=== PATIENT | female | born 1980 ===

== ENCOUNTER 2017-11-12 15:36 | Emergency (ER) | payer MEDICAID ==
[2017-11-12 15:41] VITALS: BP 114/69; PULSE 67; RESP 18; TEMP 98.3; O2SAT 100
--- NOTE | 2017-11-12 17:12 | ED PDOC ---
HPI: Chest Pain Time Seen by Provider: 11/12/17 16:07 Chief Complaint (Nursing): Chest Pain Chief Complaint (Provider): Chest Pain History Per: Patient History/Exam Limitations: no limitations Onset/Duration Of Symptoms: Days (x3) Current Symptoms Are (Timing): Still Present Additional Complaint(s): Isabella Barrios is a 37 year old female that presents to the ED with a chief complaint of constant left-sided mid-sternal chest pain that she has been experiencing for the past three days. Patient reports that her pain is worsened with movement, and that it radiates to the left side of her back. She denies any shortness of breath, palpitations, cough, fever, trauma, calf pain, leg swelling, recent travel, OCP use, or any medical problems. Past Medical History Reviewed: Historical Data, Nursing Documentation, Vital Signs Vital Signs: Last Vital Signs Temp 98.3 F 11/12/17 15:40 Pulse 67 11/12/17 15:40 Resp 18 11/12/17 15:40 BP 114/69 11/12/17 15:40 Pulse Ox 100 11/12/17 22:41 - Medical History PMH: Hypercholesterolemia (not on meds) - Family History Family History: States: Unknown Family Hx - Social History Current smoker - smoking cessation education provided: No Alcohol: None - Home Medications Home Medications: Ambulatory Orders Medication Instructions Recorded traMADol [Ultram] 50 mg PO DAILY PRN #5 tab 11/12/17 - Allergies Allergies/Adverse Reactions: Allergies Allergy/AdvReac Type Severity Reaction Status Date / Time acetaminophen [From Percocet] AdvReac DIZZINESS Verified 11/12/17 20:01 oxycodone [From Percocet] AdvReac DIZZINESS Verified 11/12/17 20:01 TERESITA Risk Score for UA/NSTEMI - TERESITA Risk Score Age > 64: NO 3 or more CAD Risk Factors: NO Known CAD (Stenosis greater than 50%): NO Aspirin use in past 7 days: NO Severe Angina: NO EKG ST changes greater than 0.5mm: NO Positive Cardiac Marker: NO TERESITA Score: 0 Risk %: 5% Review of Systems Constitutional: Negative for: Fever Cardiovascular: Positive for: Chest Pain (left-sided mif sternal). Negative for : Palpitations, Edema Respiratory: Negative for: Cough, Shortness of Breath Musculoskeletal: Negative for: Other (denies calf pain) Physical Exam - Reviewed Nursing Documentation Reviewed: Yes Vital Signs Reviewed: Yes - Physical Exam Appears: Positive for: Non-toxic, No Acute Distress Head Exam: Positive for: ATRAUMATIC, NORMOCEPHALIC Skin: Positive for: Normal Color, Warm Eye Exam: Positive for: Normal appearance, EOMI, PERRL Neck: Positive for: Normal, Supple Cardiovascular/Chest: Positive for: Regular Rate, Rhythm. Negative for: Chest Non Tender (TTP lower mid sternum), Murmur Respiratory: Positive for: Normal Breath Sounds. Negative for: Wheezing Gastrointestinal/Abdominal: Positive for: Normal Exam, Soft. Negative for: Tenderness Back: Positive for: Normal Inspection. Negative for: L CVA Tenderness, R CVA Tenderness Extremity: Positive for: Normal ROM. Negative for: Pedal Edema, Calf Tenderness , Swelling Neurologic/Psych: Positive for: Alert, Oriented. Negative for: Motor/Sensory Deficits - Laboratory Results Result Diagrams: 11/12/17 17:00 11/12/17 17:00 - ECG O2 Sat by Pulse Oximetry: 100 (RA) Pulse Ox Interpretation: Normal Medical Decision Making Medical Decision Making: Impression: Chest Pain Plan: * Chest X-Ray * CT Angio Chest * EKG * CMP * CBC * PTT * PT * D-Dimer * Troponin I * Urine * Reevaluation Chest X-Ray FINDINGS: LUNGS: No active pulmonary disease. PLEURA: No significant pleural effusion identified. No pneumothorax apparent. CARDIOVASCULAR: Aortic tortuosity versus aneurysmal dilatation. Cardiac silhouette within normal limits. OSSEOUS STRUCTURES: No significant abnormalities. VISUALIZED UPPER ABDOMEN: Normal. OTHER FINDINGS: None. IMPRESSION: No acute pulmonary disease. Aortic tortuosity versus aneurysmal dilatation. Correlation with cross- sectional imaging can be obtained for further evaluation. CT Angio Chest FINDINGS: Pulmonary arteries: No pulmonary embolism. Aorta: No aneurysm. No dissection. Lungs: No consolidation. Pleural space: No significant effusion. No pneumothorax. Heart: No cardiomegaly. No significant pericardial effusion. Mediastinum: 0.2 x 3.5 x 6.2 cm hypodense mass left posterior mediastinal mass contiguous with spine. Mild vascularity within mass. Bones/joints: No acute fracture. Soft tissues: Unremarkable. Lymph nodes: No pathologically enlarged lymph nodes IMPRESSION: 1. No CT evidence of pulmonary embolism. 2. Posterior mediastinal mass. DDX: Neurogenic tumor, extramedullary hematopoiesis. Suggest nonemergent MRI. 22:35 Findings discussed in detail with patient and , questions answered. Given copy of labs, CXR and CT chest to take to PMD, notified of need for outpatient referral for MRI. Scribe Attestation: Documented by An Calabrese, acting as a scribe for Madhavi Mcnulty MD. Provider Scribe Attestation: All medical record entries made by the Scribe were at my direction and personally dictated by me. I have reviewed the chart and agree that the record accurately reflects my personal performance of the history, physical exam, medical decision making, and the department course for this patient. I have also personally directed, reviewed, and agree with the discharge instructions and disposition. Disposition - Clinical Impression Clinical Impression: Posterior mediastinal tumor - Disposition Disposition: Routine/Home Disposition Time: 22:37 Condition: STABLE Additional Instructions: FOLLOW-UP WITH PMD WITHIN 2 DAYS FOR REEVALUATION. BRING COPIES OF LABS, CXR AND CT CHEST WITH YOU. Prescriptions: traMADol [Ultram] 50 mg PO DAILY PRN #5 tab PRN Reason: Pain, Severe (8-10) Instructions: Magnetic Resonance Imaging (ED) Forms: [employer] (Pashto)
[2017-11-12 17:27] LABS: BASO # 0.1 K/uL (0.0-0.2); BASO % 0.9 % (0.0-2.0); EOS # 0.2 K/uL (0.0-0.7); EOS % 3.2 % (0.0-4.0); HEMOGLOBIN 11.5 g/dL (12.0-16.0); LYMPH # 2.1 K/uL (1.0-4.3); MEAN CELL VOLUME 83.1 fl (81.0-99.0); MEAN CORPUSCULAR HEMOGLOBIN 26.2 pg (27.0-31.0); MEAN CORPUSCULAR HGB CONC 31.5 g/dL (33.0-37.0); MEAN PLATELET VOLUME 8.8 fl (7.2-11.7); MONO # 0.5 K/uL (0.0-0.8); MONO % 6.9 % (0.0-10.0); NEUT # 4.5 K/uL (1.8-7.0); RBC 4.39 Mil/uL (3.80-5.20); RED CELL DISTRIBUTION WIDTH 13.8 % (11.5-14.5); WHITE BLOOD COUNT 7.4 K/uL (4.8-10.8)
--- NOTE | 2017-11-12 17:28 | RAD ---
HISTORY: CP COMPARISON: No prior. TECHNIQUE: Chest PA and lateral FINDINGS: LUNGS: No active pulmonary disease. PLEURA: No significant pleural effusion identified. No pneumothorax apparent. CARDIOVASCULAR: Aortic tortuosity versus aneurysmal dilatation. Cardiac silhouette within normal limits. OSSEOUS STRUCTURES: No significant abnormalities. VISUALIZED UPPER ABDOMEN: Normal. OTHER FINDINGS: None. IMPRESSION: No acute pulmonary disease. Aortic tortuosity versus aneurysmal dilatation. Correlation with cross-sectional imaging can be obtained for further evaluation.
[2017-11-12 17:33] LABS: ALB/GLOB RATIO 1.3 (1.0-2.1); ALBUMIN 4.2 g/dL (3.5-5.0); ALT/SGPT 31 U/L (9-52); AST/SGOT 22 U/L (14-36); BLOOD UREA NITROGEN 12 mg/dl (7-17); CALCIUM 8.9 mg/dL (8.4-10.2); GFR AFRICAN-AMERICAN > 60; GFR NON-AFRICAN AMERICAN > 60
[2017-11-12 17:39] LABS: PROTHROMBIN TIME 10.7 Seconds (9.8-13.1)
[2017-11-12 17:40] LABS: PARTIAL THROMBOPLASTIN TIME 34.5 Seconds (25.6-37.1)
[2017-11-12] MEDS ORDERED: Oxycodone/Acetaminophen 5/325 mg Tab PO STA (19:54)
[2017-11-12] MEDS ORDERED: Oxycodone/Acetaminophen 5/325 mg Tab ONE (19:56)
[2017-11-12] MEDS ORDERED: Naproxen 500 MG TAB PO ONE (19:59)
[2017-11-12] MEDS ORDERED: Naproxen 500 MG TAB PO STA (20:06)
[2017-11-12] MEDS ORDERED: Iodixanol 320 MG/ML 100 ML BOTTLE IV ONE (20:09)
--- NOTE | 2017-11-12 22:03 | CT ---
EXAM: CT Angiography Chest With Intravenous Contrast CLINICAL HISTORY: 37 years old, female; Pain; Other: Chest pain; Patient HX: Non-smoker; Additional info: Cp TECHNIQUE: Axial computed tomographic angiography images of the chest with intravenous contrast using pulmonary embolism protocol. All CT scans at this facility use one or more dose reduction techniques, viz.: automated exposure control; ma/kV adjustment per patient size (including targeted exams where dose is matched to indication; i.e. head); or iterative reconstruction technique. MIP reconstructed images were created and reviewed. Sagittal reformatted images were created and reviewed. CONTRAST: 98 mL of VISIPAQUE administered intravenously. COMPARISON: No relevant prior studies available. FINDINGS: Pulmonary arteries: No pulmonary embolism. Aorta: No aneurysm. No dissection. Lungs: No consolidation. Pleural space: No significant effusion. No pneumothorax. Heart: No cardiomegaly. No significant pericardial effusion. Mediastinum: 0.2 x 3.5 x 6.2 cm hypodense mass left posterior mediastinal mass contiguous with spine. Mild vascularity within mass. Bones/joints: No acute fracture. Soft tissues: Unremarkable. Lymph nodes: No pathologically enlarged lymph nodes. IMPRESSION: 1. No CT evidence of pulmonary embolism. 2. Posterior mediastinal mass. DDX: Neurogenic tumor, extramedullary hematopoiesis. Suggest nonemergent MRI.
--- NOTE | 2017-11-13 10:48 | CARD ---
APPROVED REPORT EKG Measurement Heart [id number] <Conclusion> Normal sinus rhythm Normal ECG
== END 2017-11-12 22:58 | disposition home or self-care (01) ==
LOC: H.ER 15:36
DX: D49.89 Neoplasm of unspecified behavior of other specified sites (principal); E78.00 Pure hypercholesterolemia, unspecified
CPT/HCPCS: 71046; 71275; 80053; 84484; 85025; 85378; 85610; 85730; 93005; 99282; Q9967